=== PATIENT | female | born 1970 | race Caucasian/White ===

== ENCOUNTER 2018-05-02 05:33 | Inpatient (IN) | payer OTHER ==
[2018-04-20 13:06] LABS: HEMATOCRIT 37.3 % (37.0-47.0); HEMOGLOBIN 12.7 gm/dL (12.0-15.0); MCH 33.7 pg (26.0-34.0); MCV 99.2 fL (80.0-100.0); RBC 3.76 mil/uL (4.20-5.00); RDW 13.4 % (10.5-14.5); WBC 5.8 thou/uL (4.0-11.0)
[2018-04-20 13:07] LABS: URINE BILIRUBIN NEGATIVE (Negative); URINE BLOOD NEGATIVE (Negative); URINE CLARITY CLEAR; URINE COLOR YELLOW; URINE GLUCOSE-RANDOM* NEGATIVE (Negative); URINE KETONES NEGATIVE (Negative); URINE LEUKOCYTES-REFLEX NEGATIVE (Negative); URINE NITRITE-REFLEX NEGATIVE (Negative); URINE PROTEIN (DIPSTICK) NEGATIVE (Negative); URINE UROBILINOGEN 0.2 E.U./dl (0.2-1.0)
[2018-04-20 13:18] LABS: ALBUMIN 3.6 g/dL (3.4-5.0); CALCIUM 9.2 mg/dL (8.5-10.1); CREATININE 0.9 mg/dL (0.6-1.0); PROTIME 10.7 Seconds (9.3-11.4)
[2018-05-02] VITALS (8 sets, daily range): BP systolic 106–150; BP diastolic 52–84
[~2018-05-02] VITALS: Ht 175.3 cm; Wt 83.0 kg
--- NOTE | ~2018-05-02 | O ---
[facility] [place] [address] OPERATIVE REPORT Name: SUHAIL DALLAS Room #: 456-P [facility] IN M.R.#: [id number] Admission: 05/02/18 Attend Phys: Don Hsieh MD Discharge: Date of : 68 Report #: [id number] THIS REPORT FOR: //name// CC: Don Sheran Brian DATE OF SERVICE: 05/02/2018 PREOPERATIVE DIAGNOSIS: Rheumatoid arthritis and degenerative arthritis, right hip. PROCEDURE: Right total hip arthroplasty. SURGEON: Don Hsieh MD INDICATION: This 48-year-old female with rheumatoid arthritis, has progressive right hip pain. Clinical and radiographic findings reveal moderate loss of joint space and chronic synovitis with chronic hip pain. She has tried appropriate conservative management and continues on immunosuppressive medications for her rheumatoid disease. She has elected to go ahead with right total hip arthroplasty. She and her understand well the treatment options and potential risks and benefits. DESCRIPTION OF PROCEDURE: The patient was taken to the operating room where she was placed under general anesthesia. Prophylactic intravenous antibiotics were administered. She was turned to the left lateral decubitus position. The right hip, thigh and leg were meticulously prepped and draped. A slightly curving skin incision was made centered over the greater trochanter. This was carried through fascia exposing the posterior aspect of the hip joint. The short external rotators and capsule were taken down and tagged with several #1 Tevdek sutures. The femoral head was dislocated and rather significant degenerative change throughout the femoral head and acetabulum was noted. A femoral neck osteotomy was performed and the canal was opened using reamers and hand broaches. The Richard and NephThe Political Student hip system was utilized. The hip seemed to be best suited for a size 13 Synergy femoral component. The trial component was removed and attention directed to the acetabulum. The acetabulum was sequentially reamed gradually up to 52 mm in diameter. A 52 mm StikTite fenestrated shell was then inserted, placing this in alignment with her true acetabulum, which placed this in about 45 degrees off of vertical and about 20 degrees of anteversion. It seated nicely and appeared to be secure. In addition, 3 cancellous screws were placed through the holes in the upper aspect of the shell. These also engage good periacetabular bone and seemed to be stable and solid. A 36-mm polyethylene liner was then inserted placing the 20-degree elevated rim at about the 10 o'clock posterior position. This also seated nicely and appeared to be secure. A permanent stem was brought on the [address] [address] OPERATIVE REPORT Name: SUHAIL DALLAS Room #: 456-P [facility] IN M.R.#: [id number] Admission: 05/02/18 Attend Phys: Don Hsieh MD Discharge: Date of : 68 Report #: [id number] field using the Richard and Nephew Synergy porous size 13 stem. This was impacted in the canal, positioning this in about 15 degrees of anteversion. It seated nicely and appeared to be secure. A trial reduction was performed and the hip seemed to be best suited for a +0 neck length, which resulted in satisfactory alignment, range of motion, stability and leg length. The permanent Oxinium 36 mm head was selected using the +0 neck length. This was impacted on to the Zelaya taper neck. The hip was reduced. Alignment, range of motion, stability and leg length were assessed and felt to be satisfactory. The wound was copiously irrigated. Good hemostasis was established. Total blood loss for the procedure was estimated at 100 mL. The capsule and short external rotators were then repaired back to the greater trochanter using the #1 Tevdek sutures passed through drill holes in the bone. This resulted in additional satisfactory hip stability. A single Hemovac was left in the wound exiting through a separate stab incision. The fascia was closed with multiple #1 Vicryl sutures. The subcutaneous tissues were closed with 0 Monocryl. The skin was closed with skin anshu. A sterile dressing was applied. The patient was awakened and returned to recovery room in good condition. <ELECTRONICALLY SIGNED> By: Don Hsieh MD 05/03/18 0736 [id number] Don Hsieh MD /nt
--- NOTE | ~2018-05-02 | D ---
[facility] [address] DISCHARGE SUMMARY Name: SUHAIL DALLAS Room #: 225-P [facility] IN M.R.#: [id number] Admission: 05/02/18 Attend Phys: Don Hsieh MD Discharge: 05/06/18 Date of : 68 Report #: [id number] THIS REPORT FOR: //name// CC: Don Torres DATE OF SERVICE: 05/06/2018 FINAL DIAGNOSIS: Rheumatoid and degenerative arthritis, right hip. OPERATIONS AND PROCEDURES: Right total hip arthroplasty. HISTORY OF PRESENT ILLNESS: This 48-year-old female has progressive pain, weakness and limited range of motion of the right hip. Her findings are consistent with both rheumatoid arthritis and associated degenerative osteoarthritis. She has tried appropriate conservative measures for some time without clear benefit. She is losing her ability to function and exercise effectively. She has elected to go ahead with right total hip arthroplasty. HOSPITAL COURSE: The patient was admitted and taken to the operating room. She underwent right total hip arthroplasty, which she tolerated quite nicely. Postoperatively, her course was largely unremarkable. She did have problems, however, with narcotic medications and nausea. Therefore, it was difficult to control her discomfort and also manage her nausea. Her medications were adjusted to a lower level of pain medication, and she required ongoing antinausea medications intermittently. She did advance with physical therapy and was able to slowly advance with regard to her diet. She seems to be improving nicely, and it appears that she will be satisfactorily safe and sufficiently independent for hospital discharge on 05/06. DISCHARGE MEDICATIONS: Include Levoxyl 0.15 mg daily, folic acid 1 mg daily, Xarelto 10 mg daily, Ultram 50 mg q.4 hours p.r.n. for mild pain, hydrocodone 5/325 mg q.4 hours p.r.n. for moderate or more severe pain. She will resume her other immunosuppressive medications with methotrexate and Enbrel in another 2 weeks after the wound is well healed. I have asked her to call me should there be any problems or questions. I can see her in the office next week for inspection and dressing change. We will see her back the following week for suture removal. <ELECTRONICALLY SIGNED> By: Don Hsieh MD 05/10/18 0745 0900 [id number] Don Hsieh MD /nt
[~2018-05-02 05:33] MED LIST: ENBREL25 MG/0.5 SUBQ; FOLIC ACID1 MG PO; IBUPROFEN 600600 M1 PO; IBUPROFEN 800800 M1 PO; LEVOXYL150 MCG PO; METHOTREXATE 22.5 MG PO; NORCO 5-325 TA1 EACH PO; PERCOCET 5-3251 EACH PO
[2018-05-03 00:15] VITALS: BP 127/53
[2018-05-03 04:18] VITALS: BP 140/56
[2018-05-03 05:06] LABS: HEMATOCRIT 33.4 % (37.0-47.0); HEMOGLOBIN 11.4 gm/dL (12.0-15.0); MCH 33.9 pg (26.0-34.0); MCV 99.6 fL (80.0-100.0); RBC 3.36 mil/uL (4.20-5.00); RDW 13.3 % (10.5-14.5); WBC 9.3 thou/uL (4.0-11.0)
[2018-05-03 08:11] VITALS: BP 140/57
[2018-05-03 08:18] LABS: CALCIUM 9.1 mg/dL (8.5-10.1); POTASSIUM 4.1 mmol/L (3.5-5.1)
[2018-05-03 15:50] VITALS: BP 110/58
[2018-05-03 20:22] VITALS: BP 135/64
[2018-05-04 07:10] LABS: HEMATOCRIT 30.8 % (37.0-47.0); HEMOGLOBIN 10.6 gm/dL (12.0-15.0); MCH 34.5 pg (26.0-34.0); MCHC 34.5 g/dL (28.0-37.0); MCV 100.2 fL (80.0-100.0); RBC 3.08 mil/uL (4.20-5.00); RDW 13.4 % (10.5-14.5); WBC 8.1 thou/uL (4.0-11.0)
[2018-05-04 07:35] VITALS: BP 106/55
[2018-05-04 20:39] VITALS: BP 131/73
[2018-05-05 07:31] LABS: HEMATOCRIT 31.9 % (37.0-47.0); HEMOGLOBIN 11.2 gm/dL (12.0-15.0); MCH 34.7 pg (26.0-34.0); MCV 99.1 fL (80.0-100.0); RBC 3.22 mil/uL (4.20-5.00); RDW 13.1 % (10.5-14.5); WBC 8.2 thou/uL (4.0-11.0)
[2018-05-05 07:43] VITALS: BP 114/63
[2018-05-05 19:59] VITALS: BP 140/75
[2018-05-06 07:26] VITALS: BP 140/75
[2018-05-06 08:31] VITALS: BP 111/60
== END 2018-05-06 13:55 | disposition home or self-care (01) | DRG 470 ==
LOC: PRE 05:33 → 4W 05:45 → TBA 05:45 → 4W 10:41 → PRE 11:22 → SICU 05-03 19:54 → ENTRNSPT 05-06 13:26 → EDTRNSPTSTS 05-06 13:28 → SICU 05-06 13:55
PROVIDERS: Orthopaedic Surgery
PROC: 0SR906Z Replacement of Right Hip Joint with Oxidized Zirconium on Polyethylene Synthetic Substitute, Open Approach (ICD-10-PCS; principal; 2018-05-03)
DX: M16.11 Unilateral primary osteoarthritis, right hip (principal); M06.851 Other specified rheumatoid arthritis, right hip; E03.9 Hypothyroidism, unspecified; Z79.899 Other long term (current) drug therapy
CPT/HCPCS: 10047; 15002; 50010; 50101; 50149; 50382; 50414; 51412; 51771; 53368; 56521; 56525; 56527; 62110; 62900; 70005

== ENCOUNTER 2018-12-05 05:30 | Inpatient (IN) | payer OTHER ==
[2018-11-28 12:57] LABS: HEMATOCRIT 38.9 % (37.0-47.0); HEMOGLOBIN 13.4 gm/dL (12.0-15.0); MCH 34.6 pg (26.0-34.0); MCHC 34.5 g/dL (28.0-37.0); MCV 100.4 fL (80.0-100.0); RBC 3.88 mil/uL (4.20-5.00); RDW 14.6 % (10.5-14.5); WBC 5.8 thou/uL (4.0-11.0)
[2018-11-28 13:00] LABS: URINE BILIRUBIN NEGATIVE (Negative); URINE BLOOD NEGATIVE (Negative); URINE CLARITY CLEAR; URINE COLOR YELLOW; URINE GLUCOSE-RANDOM* NEGATIVE (Negative); URINE KETONES NEGATIVE (Negative); URINE LEUKOCYTES-REFLEX TRACE (Negative); URINE NITRITE-REFLEX NEGATIVE (Negative); URINE PROTEIN (DIPSTICK) NEGATIVE (Negative); URINE UROBILINOGEN 0.2 E.U./dl (0.2-1.0)
[2018-11-28 13:06] LABS: ALBUMIN 4.1 g/dL (3.4-5.0); CALCIUM 9.9 mg/dL (8.5-10.1); CREATININE 0.9 mg/dL (0.6-1.0); POTASSIUM 4.3 mmol/L (3.5-5.1)
[2018-11-28 13:09] LABS: PROTIME 10.8 Seconds (9.3-11.4)
[2018-12-05] VITALS (10 sets, daily range): BP systolic 97–151; BP diastolic 51–70
[~2018-12-05] VITALS: Ht 175.3 cm; Wt 83.5 kg
--- NOTE | ~2018-12-05 | D ---
[facility] [place] [address] DISCHARGE SUMMARY Name: SUHAIL DALLAS Room #: 221-P [facility] IN M.R.#: [id number] Admission: 12/05/18 ������������������ Attend Phys: Don Hsieh MD Discharge: 12/09/18 ������������������ Date of : 68 Report #: [id number] THIS REPORT FOR: //name// CC: Don Garzon DATE OF SERVICE: 12/09/2018 FINAL DIAGNOSIS: End-stage degenerative osteoarthritis, left hip. OPERATIVE PROCEDURE: Left total hip arthroplasty. HISTORY: This 48-year-old female with both rheumatoid and degenerative osteoarthritis has problems with bilateral hip pain. She underwent previous right total hip arthroplasty with good result. She was admitted at this time for left total hip arthroplasty. HOSPITAL COURSE: She was taken to the Operating Room and underwent left total hip arthroplasty, which she tolerated well. Her postoperative course was largely unremarkable. She does have difficulty tolerating narcotic pain medications and had some problems with nausea. This was controlled with limiting her narcotics and addition of any nausea medications. She was comfortable enough to begin slow progress with therapy and now seems to be safe and ambulating nicely with a walker for protection. The wound appears to be healing nicely. There is no evidence of infection. She is tolerating her routine medications well. She has made plans for home with family assistance and then outpatient therapy. We will go ahead with hospital discharge today. DISCHARGE MEDICATIONS: Include Synthroid 137 mcg daily, tramadol 50 mg q. 4-6 hours p.r.n. for pain, Xarelto 10 mg daily. She will resume her long-term regimen of methotrexate and Enbrel beginning in another 2 weeks once the wound is satisfactorily healed. DISCHARGE INSTRUCTIONS: She will continue a regular diet. She will continue careful independent ambulation at home. We will start some outpatient therapy next week. I have asked her to call me if any problems or questions. We will otherwise see her back in the office in 2 weeks for followup and suture removal. ��������������������������������������������� ���������������������������������������� By: ��������������������������������������������� 0746 1634 Don Hsieh MD /nt
[~2018-12-05 05:30] MED LIST changes: +ENBREL50 MG/1 M1 SUBQ; +SYNTHROID137 MC1 PO
--- NOTE | 2018-12-05 10:41 | H ---
[facility] [place] [address] HISTORY AND PHYSICAL Name: SUHAIL DALLAS Room #: 150-3 ADM IN M.R.#: [id number] Admission: 12/05/18 ������������������ Attend Phys: Don Hsieh MD Discharge: ������������������ Date of : 68 Report #: [id number] THIS REPORT FOR: //name// CC: Don Garzon DATE OF SERVICE: 12/05/2018 CHIEF COMPLAINT: Rheumatoid and degenerative osteoarthritis, left hip. HISTORY OF PRESENT ILLNESS: This 48-year-old female has a history of progressive degenerative osteoarthritis and rheumatoid arthritis causing large joint problems in the past. She has had a right total hip replacement done about 6 months ago and has done quite nicely on that side. She now has progressive pain in the left hip with limited range of motion and pain even at rest. She has difficulty controlling this with medications. She has elected to go ahead with total hip arthroplasty. PREVIOUS MEDICAL HISTORY: Notable for rheumatoid arthritis and degenerative osteoarthritis and hypothyroidism. She has had a previous right total hip arthroplasty with good result. MEDICATIONS: Include Levoxyl 0.15 mg daily, methotrexate and Enbrel intermittently for management of her rheumatoid disease. She has been off those medications in the last 2-3 weeks. PHYSICAL EXAMINATION: GENERAL: She is mildly heavy and deconditioned. LUNGS: Clear. CARDIOVASCULAR: Reveals a regular rate and rhythm without murmurs. ABDOMEN: Soft and nontender. MUSCULOSKELETAL: The neck and back reveal normal contour and alignment and satisfactory range of motion. The upper extremities reveal good movement at the shoulder, elbow, wrist and hand. There is no significant rheumatoid deformity noted. The right lower extremity is notable for a well-healed right total hip arthroplasty. She has good range of motion and stability and minimal discomfort. The left lower extremity is notable for rather marked discomfort of the left hip with limited rotation and flexion and pain with movement as well as weightbearing. The lower leg, foot and ankle appear to be normal without significant degenerative or rheumatoid symptoms. IMAGING: X-rays of the left hip reveal moderate degenerative change. IMPRESSION: We have discussed again her chronic and more recent symptoms. While her plain x-rays revealed only moderate degenerative change, her history of severe symptoms and history of rheumatoid disease suggest more significant [address] [address] HISTORY AND PHYSICAL Name: SUHAIL DALLAS Room #: 150-3 [facility] IN [facility].#: [id number] Admission: 12/05/18 ������������������ Attend Phys: Don Hsieh MD Discharge: ������������������ Date of : 68 Report #: [id number] joint surface damage. She had similar problems on the right side, which was benefited with total hip arthroplasty. She has elected to go ahead with left total hip arthroplasty at this time. We will plan to proceed with surgery today on 12/05/2018. At her last surgery, she had a lot of problems with postop nausea, which may be an issue again now. We will plan to advance activity as comfort, strength and nausea control will allow. ��������������������������������������������� <ELECTRONICALLY SIGNED> ���������������������������������������� By: Don Hsieh MD ��������������������������������������������� 12/05/18 1041 0853 0914 Don Hsieh MD /nt
--- NOTE | 2018-12-05 13:07 | NUR ---
ASSUMED CARE AT 1130, SHIFT ASSESSMENT DONE, VSS. GLORIA DRESSING AND DRAIN TO LEFT HIP C/D/I. REPORTS PAIN 8/10, BUT ALSO REPORTS NAUSEA AND WATNS TO WAIT ON PAIN MEDS FOR NOW. BILATETRAL SCDs IN PLACE. WILL CONTINUE TO ASSESS AND ASSIST WITH ADLs NEEDED.
--- NOTE | 2018-12-05 19:16 | NUR ---
REPORTED PAIN IS NOT RELEIVED BY ORAL PAIN MED. HOSPITALIST CALLED, ORDER RECEIVED FOR FENTANYL AND TRAMADOL. FENTANYL GIVEN AT 1740
[2018-12-06 00:34] VITALS: BP 75/53
[2018-12-06 05:46] LABS: HEMATOCRIT 31.4 % (37.0-47.0); HEMOGLOBIN 10.4 gm/dL (12.0-15.0); MCH 34.1 pg (26.0-34.0); MCHC 33.3 g/dL (28.0-37.0); MCV 102.6 fL (80.0-100.0); RBC 3.06 mil/uL (4.20-5.00); RDW 14.7 % (10.5-14.5); WBC 9.2 thou/uL (4.0-11.0)
[2018-12-06 05:55] VITALS: BP 105/52
--- NOTE | 2018-12-06 07:38 | O ---
[facility] [place] [address] OPERATIVE REPORT Name: SUHAIL DALLAS Room #: 422-P ADM IN M.R.#: [id number] Admission: 12/05/18 ������������������ Attend Phys: Don Hsieh MD Discharge: ������������������ Date of : 68 Report #: [id number] THIS REPORT FOR: //name// CC: Don Garzon DATE OF SERVICE: 12/05/2018 PREOPERATIVE DIAGNOSIS: Degenerative osteoarthritis and rheumatoid arthritis, left hip. POSTOPERATIVE DIAGNOSIS: Degenerative osteoarthritis and rheumatoid arthritis, left hip. PROCEDURE: Left total hip replacement. SURGEON: Don Hsieh MD INDICATIONS: This 48-year-old female has both rheumatoid arthritis and degenerative osteoarthritis with progressive problems involving both hips. She has had similar problems in the opposite right side with good progress after right total hip replacement about 6 months ago. We have elected to go ahead with left total hip replacement at this time. DESCRIPTION OF PROCEDURE: The patient was taken to the operating room where she was placed under general anesthesia. Prophylactic intravenous antibiotics were administered. She was turned to the right lateral decubitus position. The left hip and thigh were then meticulously prepped and draped. A slightly curving posterolateral skin incision was made and carried through subcutaneous tissues and fascia and the posterior aspect of the hip was visualized and short external rotators and capsule were taken down and tagged with several Tevdek sutures. The hip was dislocated and marked degenerative change on both the acetabulum and femoral head were noted. A femoral neck osteotomy was performed and the canal was prepared with reamers and hand broaches. The Richard and NephFloored system was utilized and a size 13 press-fit stem seemed to fit most nicely. The calcar was trimmed down to an appropriate level. Attention was then directed to the acetabulum, which was sequentially reamed with spherical reamers. A 52 mm reamer fit very snugly and seemed to be nicely aligned. A StikTite 52 mm diameter acetabular shell was then inserted, positioning this in alignment with her true acetabulum, which placed this at about 20 degrees of anteversion and 45 degrees off of vertical. It seated nicely and appeared to be secure. In addition, three screws were placed through the apex of the shell engaging good periacetabular bone. A 36-mm diameter polyethylene liner was then inserted, placing the 20-degree elevated haskins at about the 9 to 10 o'clock posterior position. This was snapped into place and seated nicely and appeared to be secure. The size 13 press-fit femoral stem with a standard offset neck was then [address] [address] OPERATIVE REPORT Name: SUHAIL DALLAS Room #: 422-P [facility] IN .R.#: [id number] Admission: 12/05/18 ������������������ Attend Phys: Don Hsieh MD Discharge: ������������������ Date of : 68 Report #: [id number] inserted. This was impacted into the canal. It seated nicely and appeared to be very secure. A +0 neck length and a 36 mm head size were selected using an Oxinium style head. This was impacted on the Zelaya taper and the hip was reduced. Alignment, range of motion, stability and leg lengths were found to be acceptable. The wound was copiously irrigated. Good hemostasis was established. A single Hemovac was left in the wound exiting through a separate stab incision. The short external rotators and capsule were repaired back to bone using the #1 Tevdek sutures passed through drill holes in the bone. The fascia was closed with multiple #1 Vicryl sutures. The subcutaneous tissues were closed with 0 Monocryl. The skin was closed with skin anshu. Sterile dressing was applied. The patient was awakened and returned to the recovery room in good condition. ��������������������������������������������� <ELECTRONICALLY SIGNED> ���������������������������������������� By: Don Hsieh MD ��������������������������������������������� 12/06/18 0738 1037 1104 Don Hsieh MD /nt
[2018-12-06 08:02] VITALS: BP 112/55
[2018-12-06 09:53] LABS: CALCIUM 8.9 mg/dL (8.5-10.1); CREATININE 0.9 mg/dL (0.6-1.0); MAGNESIUM 1.9 mg/dL (1.8-2.4); POTASSIUM 4.8 mmol/L (3.5-5.1)
--- NOTE | 2018-12-06 11:25 | NUR ---
ASSESSMENT-PT LIVES AT HOME WITH HER AND HE IS IN GOOD HEALTH AND ABLE TO ASSIST AT HOME. PT HAS A WALKER AT HOME ALREADY. PT HAS BEEN TO [facility] IN [place] AND WOULD LIKE TO GO TO THERAPY HERE AGAIN. PT VOICES NO CONCERNS RELATED TO DC. FOLLOWING TO ASSIST NEEDED.
--- NOTE | 2018-12-06 13:01 | NUR ---
Assumed pt care at 7am.Pt in bed very miserable related to her left hip pain. Assessment completed.vss. Am meds given including pain med.Partial bath given by information systems security manager.Pt able to participate.Dr Hsieh and Sumaya here,order noted.Pt later ambulated with therapist.Fair endurance noted.Pt now up in chair eating lunch. Family at bs visiting.Will continue to monitor.
[2018-12-06 16:00] VITALS: BP 122/54
[2018-12-06 20:05] VITALS: BP 128/40
--- NOTE | 2018-12-07 03:24 | NUR ---
PATIENTS CARE WAS ASSUMED AT SHIFT CHANGE. PATIENT WAS ASSESSED AND MEDS WERE PASSED. PATIENT WAS ABLE TO WALK WITH A WALKER TO [facility] WITHOUT ISSUES. THIS NURSE AND PATIENT WORKED ON BODY MECHANICS TO GET IN AND OUT OF BED AND UP AND DOWN FROM A SITTING POSITION. HOURLY ROUNDING WAS DONE. THE BED IS IN A LOW AND LOCKED POSITION.
[2018-12-07 03:30] VITALS: BP 111/55
[2018-12-07 05:33] LABS: HEMOGLOBIN 9.9 gm/dL (12.0-15.0); MCH 34.5 pg (26.0-34.0); MCHC 34.1 g/dL (28.0-37.0); MCV 101.1 fL (80.0-100.0); RBC 2.87 mil/uL (4.20-5.00); RDW 14.5 % (10.5-14.5); WBC 8.9 thou/uL (4.0-11.0)
[2018-12-07 09:00] VITALS: BP 120/54
--- NOTE | 2018-12-07 16:36 | NUR ---
PT A&OX4, ON BED REST AT THIS TIME. SCHEDULED SURGERY FOR 1100 AM 12/08. PT HAS PAIN AT 10/10 TO LLE. TOLERATING REG TRAY WILL BE NPO AFTER MN. ORDER OBTAINED TO GIVE PT ANCEF 2MG PRIOR TO SURGERY. WILL CONT POC.
--- NOTE | 2018-12-07 17:11 | NUR ---
PT A&OX4, AMBULATES WITH ASSIST X1 AND WALKER. GLORIA DRSG TO L HIP D/I. IV INTACT IN R HAND. TOLERATING PO WELL. PT WILL TRANFER TO [facility].
[2018-12-07 18:03] VITALS: BP 104/54
--- NOTE | 2018-12-07 18:41 | NUR ---
PATIENT TRANSFERRED FROM 422 TO SICU 221, PATIENT BROUGHT DOWN PER TRANSPORT IN WHEELCHAIR ACCOMPANIED BY FRIEND ALONG WITH CART OF BELONGINGS, PATIENT A&OX4, UP PER ASSIST X1 WITH WALKER TO BATHROOM, PAIN 2, PAIN MEDICATION RECEIVED AT 1409, GLORIA DRESSING TO LEFT HIP C/D/I, PATIENT SITTING UP IN CHAIR WITH ICE PACK, PERSONAL BELONGINGS AND CALL LIGHT IN REACH, WILL CONTINUE TO MONITOR
[2018-12-07 19:43] VITALS: BP 123/63
[2018-12-07 20:41] VITALS: BP 123/63
--- NOTE | 2018-12-08 06:04 | NUR ---
Assumed pt care at 1900.Pt A/OX4.VSS.Pt cleared by PT and up ad cecile with RW in room and hallway. C/o pain to left hip 10/23 and bearable. GLORIA dsg in place on left hip C/D/I.Pt has no IV.Voiding without any difficulties. Resting quietly with eyes closed at this time no distress noted. Pt encouraged to call for help when getting OOB and doing so. Call light/personal items within reach.
[2018-12-08 06:31] LABS: HEMATOCRIT 28.5 % (37.0-47.0); HEMOGLOBIN 9.8 gm/dL (12.0-15.0); MCH 34.9 pg (26.0-34.0); MCHC 34.4 g/dL (28.0-37.0); MCV 101.3 fL (80.0-100.0); RBC 2.81 mil/uL (4.20-5.00); RDW 14.2 % (10.5-14.5); WBC 7.8 thou/uL (4.0-11.0)
[2018-12-08 09:00] VITALS: BP 108/55
--- NOTE | 2018-12-08 12:34 | NUR ---
ASSUMED PATIENT AND CARES AT 0715, PATIENT UP TO CHAIR, A&OX4, PAIN 2/10 TO LEFT HIP, PATIENT WILL TAKE PAIN MEDICINE PRIOR THERAPY, PATIENT ALSO REQUESTING OT TO HELP WITH SHOWERING, UP AD ALANNAH WITH WALKER, NO IV ACCESS, GLORIA DRESSING TO LEFT HIP 75-100% SATURATED WITH BLOODY DRAINAGE NOTED, SEBASTIAN HOSE TO BLE, NO EDEMA NOTED, PERSONAL BELONGINGS AND CALL LIGHT IN REACH, WILL CONTINUE TO MONITOR
--- NOTE | 2018-12-08 13:29 | NUR ---
SW reviewed chart and spoke with nursing and attending physician. Pt was [facility] to [facility] from and is progressing towards goals for discharge. Discharge home is anticipated for tomorrow per ortho. Pt will discharge home and do outpatient therapy. AMANDA is following to assist as needed with discharge planning.
[2018-12-08 18:43] VITALS: BP 118/63
--- NOTE | 2018-12-09 04:44 | NUR ---
ASSUMED CARE OF PATIENT AT 1900. LOW GRADE FEVER. ORDER RECEIVED FROM ARTHUR JARAMILLO FOR APAP 650MG Q4H PRN. APAP GIVEN WITH NO CHANGE IN TEMP. ORDER RECEIVED FROM DELIVERY REPRESENTATIVE LACE AND TEXTILES RESTORER (DR. CLEANING'S OFFICE) TO CHANGE GLORIA DRSG D/T SATURATION OF DRIED BLOOD. UNABLE TO CHANGE PRIOR TO PT FALLING ASLEEP. PRN TRAMADOL GIVEN FOR C/O 2/10 LEFT HIP PAIN WITH DESIRED EFFECT ACHIEVED. ICE PACK REFRESHED AND APPLIED NEEDED. ASSESSMENT COMPLETED AT 2119. LEFT HIP ERYTHEMA, NOT WARM TO TOUCH. ORAL TEMP AT 0100: 99.5. PT STATED THAT SHE WOKE UP SOAKED IN SWEAT. 2/2 PULSES. NO EDEMA. SEBASTIAN HOSE ON. PT UP AD ALANNAH WITH WALKER. PT CURRENTLY SLEEPING SOUNDLY IN BED IN NO ACUTE DISTRESS. BED LOCKED AND IN LOWEST POSITION. CALL LIGHT WITHIN REACH. WCTM.
[2018-12-09 08:20] VITALS: BP 112/71
[2018-12-09 11:43] VITALS: BP 112/71
--- NOTE | 2018-12-09 11:46 | NUR ---
ASSUMED CARE OF PATIENT THIS MORNING. PATIENT IS A&OX4. SHE IS UP AD ALANNAH. SHE HAS A GLORIA DRESSING ON HER LEFT HIP WHICH WAS CHANGED THIS MORNING. PATIENT IS ALSO WEARING SEBASTIAN HOSE. SHE HAD SOME REDNESS AND SWELLING TO HIP SITE. SHE WILL BE DISCHARGING HOME WITH SELF CARE TODAY. SHE HAS TWO PRESCRIPTIONS. PATIENT WILL RECEIVE A PAIN PILL BEFORE DISCHARGE. SHE IS CURRENTLY SITTING IN RECLINER WAITING FOR HER RIDE FOR DEPARTURE.
--- NOTE | 2018-12-09 13:33 | NUR ---
PATIENT DISCHARGED. DISCHARGE INSTRUCTIONS WERE REVIEWED WITH PATIENT AND PATIENT SIGNED IN AGREEMENT. NO IV TO REMOVE. PROVIDED ASSISTANCE TO HELP PATIENT GET DRESSED. VOLUNTEER TRANSPORT [facility] PATIENT'S PICKED PATIENT UP FOR DEPARTURE.
== END 2018-12-09 13:20 | disposition home or self-care (01) | DRG 470 ==
LOC: TBA 05:30 → 4E 05:30 → OR 05:36 → EDSTATUS 10:45 → PRE 10:47 → 4E 12:02 → OR 13:06 → PRE 13:56 → ENTRNSPT 12-07 16:57 → SICU 12-07 18:32
PROVIDERS: ADMIT Orthopaedic Surgery
PROC: 0SRB06A Replacement of Left Hip Joint with Oxidized Zirconium on Polyethylene Synthetic Substitute, Uncemented, Open Approach (ICD-10-PCS; principal; 2018-12-05)
DX: M16.12 Unilateral primary osteoarthritis, left hip (principal); E03.9 Hypothyroidism, unspecified; M06.9 Rheumatoid arthritis, unspecified; I95.9 Hypotension, unspecified; Z96.641 Presence of right artificial hip joint; Z87.891 Personal history of nicotine dependence; Z79.899 Other long term (current) drug therapy
CPT/HCPCS: 10783; 15002; 50010; 50101; 50382; 50414; 51412; 53000; 53368; 56521; 56525; 56527; 57095; 62110; 62900; 70005